=== PATIENT | male | born 1960 | race Caucasian/White ===

== ENCOUNTER 2024-03-15 18:45 | Emergency (ER) | payer OTHER ==
[~2024-03-15] VITALS: Ht 175.3 cm; Wt 84.7 kg
[2024-03-15] MEDS ORDERED: DIPHTH,PERTUSS(ACELL),TET VAC 0.5 ML SYRINGE IM ONE (19:00)
[2024-03-15 20:08] VITALS: BP 160/98
== END 2024-03-15 19:42 | disposition home or self-care (01) ==
LOC: ED 18:45
DX: S60.222A Contusion of left hand, initial encounter (principal); S60.511A Abrasion of right hand, initial encounter; W22.8XXA Striking against or struck by other objects, initial encounter; Z23 Encounter for immunization
CPT/HCPCS: 73130; 90471; 90715; 99283-25